=== PATIENT | male | born 1960 | race Caucasian/White ===

== ENCOUNTER 2019-01-22 00:34 | Outpatient (CLI) | payer BC, SELFPAY ==
[2019-01-22] MEDS: Normal Saline Flush 10 ML SYR IVP (08:35)
[2019-01-22] MEDS: Gadoterate meglumine 20 ML VIAL 10 ML IVP (08:36)
--- NOTE | 2019-01-22 09:06 | DI.MRI_ITS ---
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 BRAIN METASTASES MRI OF THE BRAIN: T2 sagittal, T1, T2, FLAIR, gradient-echo and diffusion axial sequences and post gadolinium T1 axial and coronal sequences were performed. The exam is somewhat limited by motion. No intracranial hemorrhage, mass or infarct is seen. There are no abnormal areas of enhancement. No metastatic lesions are identified. The ventricles are normal in size. The vascular flow voids appear intact. There are a few tiny high signal lesions scattered in the white matter, likely reflecting microvascular disease. The orbits, sinuses and mastoid air cells are unremarkable as visualized. IMPRESSION: No evidence of metastatic disease or other acute abnormality.
== END 2019-01-22 00:54 ==
PROVIDERS: PCP Family Medicine; Visit Provider Internal Medicine Hospice and Palliative Medicine
DX: C34.91 Malignant neoplasm of unspecified part of right bronchus or lung (principal); C77.9 Secondary and unspecified malignant neoplasm of lymph node, unspecified; Z12.89 Encounter for screening for malignant neoplasm of other sites
CPT/HCPCS: 70553